=== PATIENT | female | born 1970 | race Caucasian/White ===

== ENCOUNTER → 2017-05-04 | Outpatient (CLI) | payer BC ==
--- NOTE | 2017-05-05 08:01 | US ---
EXAMINATION TYPE: US thyroid st tissue head/neck DATE OF EXAM: 05/04/2017 COMPARISON: 02/09/2013 CLINICAL HISTORY: E03.9 Hypothyroid. GLAND SIZE: Right Lobe: 4.9 x 1.4 x 1.9 cm Overall Parenchyma: grossly heterogenous Left Lobe: 4.8 x 1.4 x 1.5 cm Overall Parenchyma: grossly heterogenous Isthmus Thickness: 0.3 cm NODULES RIGHT: # of nodules measured on right: 0 LEFT: # of nodules measured on left: 0 1 ISTHMUS: # of nodules measured in the isthmus: 0 Bilateral neck scanned, no evidence of lymphadenopathy. IMPRESSION: Correlate for thyroiditis.
== END | disposition home or self-care (01) ==
LOC: RADUSWWP 16:50
PROVIDERS: ATTEND Pediatrics
DX: E03.9 Hypothyroidism, unspecified (principal)
CPT/HCPCS: 76536

== ENCOUNTER → 2018-04-06 | Outpatient (CLI) | payer BC ==
--- NOTE | 2018-04-09 08:23 | MM ---
Reason for exam: screening (asymptomatic). Last mammogram was performed 8 months ago. History: Patient is postmenopausal and had first child at age 30. Physical Findings: A clinical breast exam by your physician is recommended on an annual basis and results should be correlated with mammographic findings. MG 3D Screening Mammo W/Cad Bilateral CC and MLO view(s) were taken. Prior study comparison: August 14, 2017, left breast mammogram, performed at [facility]. The breast tissue is extremely dense which could obscure a lesion on mammography. Finding: There is a typically benign 3 mm circumscribed round mass located 3 cm from the nipple in the left breast. No significant changes in finding since August 14, 2017. ASSESSMENT: Benign, BI-RAD 2 RECOMMENDATION: Routine screening mammogram of both breasts in 1 year.
== END | disposition home or self-care (01) ==
LOC: RADMAMWWP 16:25
PROVIDERS: ATTEND Pediatrics
DX: Z12.31 Encounter for screening mammogram for malignant neoplasm of breast (principal)
CPT/HCPCS: 77063; 77067

== ENCOUNTER → 2019-04-19 | Outpatient (CLI) | payer BC ==
--- NOTE | 2019-04-22 10:47 | MM ---
Reason for exam: screening (asymptomatic). Last mammogram was performed 1 year ago. History: Patient is postmenopausal and had first child at age 30. Physical Findings: A clinical breast exam by your physician is recommended on an annual basis and results should be correlated with mammographic findings. MG Screening Mammo w CAD Bilateral CC and MLO view(s) were taken. Prior study comparison: April 06, 2018, bilateral MG 3d screening mammo w/cad. August 14, 2017, left breast mammogram, performed at [facility]. The breast tissue is heterogeneously dense. This may lower the sensitivity of mammography. No significant changes when compared with prior studies. ASSESSMENT: Negative, BI-RAD 1 RECOMMENDATION: Routine screening mammogram of both breasts in 1 year.
== END | disposition home or self-care (01) ==
LOC: RADMAMWWP 09:19
PROVIDERS: ATTEND Physician Assistant
DX: Z12.31 Encounter for screening mammogram for malignant neoplasm of breast (principal)
CPT/HCPCS: 77067

== ENCOUNTER → 2020-04-25 | Outpatient (CLI) | payer BC ==
--- NOTE | 2020-04-30 11:15 | MM ---
Reason for exam: screening (asymptomatic). Last mammogram was performed 1 year ago. History: Patient is postmenopausal and had first child at age 30. Took estrogen for 3 years beginning at age 37. Physical Findings: A clinical breast exam by your physician is recommended on an annual basis and results should be correlated with mammographic findings. MG Screening Mammo w CAD Bilateral CC and MLO view(s) were taken. Prior study comparison: April 19, 2019, bilateral MG screening mammo w CAD. April 06, 2018, bilateral MG 3d screening mammo w/cad. The breast tissue is heterogeneously dense. This may lower the sensitivity of mammography. No significant changes when compared with prior studies. ASSESSMENT: Negative, BI-RAD 1 RECOMMENDATION: Routine screening mammogram of both breasts in 1 year.
== END | disposition home or self-care (01) ==
LOC: RADMAMWWP 10:54
PROVIDERS: ATTEND Pediatrics
DX: Z12.31 Encounter for screening mammogram for malignant neoplasm of breast (principal)
CPT/HCPCS: 77067

== ENCOUNTER → 2022-05-05 | Outpatient (CLI) | payer BC ==
--- NOTE | 2022-05-06 18:47 | MM ---
Reason for Exam: Screening (asymptomatic). Last mammogram was performed 2 year(s) and 1 month(s) ago. Patient History: Menarche at age 10. First Full-Term at age 30. Late child-bearing (after 29). Hysterectomy at age 40. Postmenopausal. Estrogen for 3 years from age 37 until age 40. Risk Values: Gisele 5 year model risk: 1.6%. NCI Lifetime model risk: 12.8%. Prior Study Comparison: 04/06/2018 Bilateral Screening Mammogram, [facility]. 04/19/2019 Bilateral Screening Mammogram, [facility]. 04/25/2020 Bilateral Screening Mammogram, [facility]. Tissue Density: The breast tissue is heterogeneously dense. This may lower the sensitivity of mammography. Findings: Analyzed By CAD. Microclip lateral left breast from prior biopsy. There is no suspicious group of microcalcifications or new suspicious mass in either breast. Overall Assessment: Negative, BI-RAD 1 Management: Screening Mammogram of both breasts in 1 year. 1. Patient should continue monthly self breast exams. 2. A clinical breast exam by your physician is recommended on an annual basis. 3. This exam should not preclude additional follow-up of suspicious palpable abnormalities. Electronically signed and approved by: Koffi Murphy M.D. Radiologist
== END | disposition home or self-care (01) ==
LOC: RADMAMWWP 14:51
PROVIDERS: ATTEND Pediatrics
DX: Z12.31 Encounter for screening mammogram for malignant neoplasm of breast (principal); Z78.0 Asymptomatic menopausal state
CPT/HCPCS: 77067

== ENCOUNTER → 2022-08-15 | Outpatient (CLI) | payer BC, OTHER ==
--- NOTE | 2022-08-15 10:38 | XR ---
Exam: Lumbosacral spine 5 views Date: 08/15/2022 Comparison: None Clinical History: Bilateral lower extremity weakness Technique: Multiple views of the lumbosacral spine were obtained per protocol. Findings: There is no significant lateral curvature of the lumbar spine. There is no asymmetric widening of the sacroiliac joints. The visualized sacral arcuate lines are symmetric and contiguous. There are no ob vious pars defects per vertebral body height and alignment are within normal limits. There is mild lo wer lumbar facet arthropathy. Overall, disc spaces appear to be maintained. Impression: Mild lower lumbar facet arthropathy without compression deformity or spondylolisthesis.
--- NOTE | 2022-08-15 10:40 | XR ---
Exam: Thoracic spine 3 views Date: 08/15/2022 Comparison: None Clinical History: Bilateral lower extremity weakness. Technique: 3 views of the thoracic spine were obtained per protocol. Findings: There is no significant lateral curvature of the thoracic spine. The visualized lung apices are clear . Vertebral body heights and alignment appear to be within normal limits. There is minimal multilevel disc space narrowing. Impression: Minimal multilevel degenerative changes without compression deformity.
== END | disposition home or self-care (01) ==
LOC: RADXRMAIN 10:06
PROVIDERS: ATTEND Pediatrics
DX: M47.816 Spondylosis without myelopathy or radiculopathy, lumbar region (principal); M47.814 Spondylosis without myelopathy or radiculopathy, thoracic region
CPT/HCPCS: 72070; 72110

== ENCOUNTER → 2023-05-18 | Outpatient (CLI) | payer BC, OTHER ==
--- NOTE | 2023-05-19 16:03 | MM ---
Reason for Exam: Screening (asymptomatic). Last screening mammogram was performed 12 month(s) ago. Patient History: Menarche at age 10. First Full-Term at age 30. Late child-bearing (after 30). Hysterectomy at age 40. Postmenopausal. Estrogen for 3 years from age 37 until age 40. Risk Values: Gisele 5 year model risk: 1.7%. NCI Lifetime model risk: 12.6%. Prior Study Comparison: 04/19/2019 Bilateral Screening Mammogram, [facility]. 04/25/2020 Bilateral Screening Mammogram, [facility]. 05/05/2022 Bilateral MG screening mammo w CAD, [facility]. Tissue Density: The breast tissue is heterogeneously dense. This may lower the sensitivity of mammography. Findings: Analyzed By CAD. There is no suspicious group of microcalcifications or new suspicious mass in either breast. Overall Assessment: Negative, BI-RAD 1 Management: Screening Mammogram of both breasts in 1 year. . Patient should continue monthly self-breast exams. A clinical breast exam by your physician is recommended on an annual basis. This exam should not preclude additional follow-up of suspicious palpable abnormalities. Note on Gisele scores and lifetime risk: 1. A Gisele score greater than 3% is considered moderate risk. If this is the case, consider specialist referral to assess eligibility for a risk reducing agent. 2. If overall lifetime risk for the development of breast cancer is 20% or higher, the patient may qualify for future screening with alternating mammogram and breast MRI. Electronically signed and approved by: Koffi Murphy M.D. Radiologist
== END | disposition home or self-care (01) ==
LOC: RADMAMWWP 09:58
PROVIDERS: ATTEND Pediatrics
DX: Z12.31 Encounter for screening mammogram for malignant neoplasm of breast (principal); Z78.0 Asymptomatic menopausal state
CPT/HCPCS: 77067

== ENCOUNTER → 2023-08-19 | Outpatient (CLI) | payer BC, OTHER ==
--- NOTE | 2023-08-19 19:51 | MR ---
EXAMINATION TYPE: MR cspine/lspine wo con DATE OF EXAM: 08/19/2023 COMPARISON: None HISTORY: 53-year-old female R29.898 Jules weakness TECHNIQUE: Multiplanar, multisequence imaging of the cervical and lumbar spine is performed without I V contrast. Additional sagittal PD sequences of the cervical spine. FINDINGS: Cervical spine: No craniocervical junction abnormality, predental space widening, prevertebral soft tissue swelling. No suspicious bone marrow placement. There is preserved alignment of the cervical spine. Mild multilevel disc disease is present with desiccated mild bulging discs. No large focal disc herniation or significant spinal canal stenosis. Normal course, caliber, and signal intensity of the cervical spinal cord. Scattered mild facet and uncovertebral joint degenerative change especially mid to lower cervical spi ne. No significant neuroforaminal narrowing is identified. Lumbar spine: Mild heterogeneous red marrow. This may be seen in setting of anemia, obesity, smoking, chronic disea se. There is mild intervertebral disc desiccation throughout. Minimal bulging disc at L5-S1. Mild facet degenerative change mid to lower lumbar spine. Vertebral body heights are preserved and alignment is maintained. Conus medullaris is normal. There is a tiny 4 mm intradural nodule within the right median dorsal thecal sac along the cauda equi na nerve roots. Refer to sagittal image 9. Located at the L3-L4 level. At L5-S1, there is a tiny right paracentral disc protrusion. This closely approaches and may abut the traversing right S1 nerve root, axial image 3 and sagittal image 9 and 10. A tiny annular fissure ma y be present here as well, sagittal image 11. No sizable disc herniation or spinal canal stenosis. No significant neuroforaminal stenosis. No prevertebral or paravertebral soft tissue abnormality. COMBINED IMPRESSION: Cervical spine: 1. Mild multilevel degenerative disc disease. Additional scattered mild facet and uncovertebral joint degenerative changes especially mid to lower cervical spine. 2. No focal disc herniation or significant spinal canal stenosis. No significant neural foraminal velma nosis. 3. No myelopathic cord signal change. Lumbar spine: 4. Mild early degenerative disc desiccation and mild early facet arthropathy lower lumbar spine. 5. No sizable focal disc herniation or significant spinal canal stenosis. However, a small right para central disc protrusion at L5-S1 closely approaches and may abut the traversing right S1 nerve root. Suggestion of a tiny annular fissure in this region as well. 6. Incidental 4 mm intradural nodule at the L3-L4 level, right paramedian dorsal thecal sac. This cou ld represent a tiny meningioma or nerve sheath tumor. 7. No significant neural foraminal stenosis.
== END | disposition home or self-care (01) ==
LOC: RADMRIMAIN 10:19
PROVIDERS: ATTEND Psychiatry & Neurology Neurology
DX: M51.36 Other intervertebral disc degeneration, lumbar region (principal); M47.816 Spondylosis without myelopathy or radiculopathy, lumbar region; M51.27 Other intervertebral disc displacement, lumbosacral region; R29.898 Other symptoms and signs involving the musculoskeletal system
CPT/HCPCS: 72141; 72148

== ENCOUNTER → 2024-04-11 | Outpatient (CLI) | payer BC, OTHER ==
[2024-04-11 16:10] VITALS: BP 162/86; PULSE 74; RESP 16; TEMP 98.4
--- NOTE | 2024-04-11 17:00 | P.SLEEP ---
History of Present Illness DATE: 04/11/2024 CONSULTATION/NEW PATIENT EVALUATION HISTORY OF PRESENT ILLNESS/SLEEP-WAKE EVALUATION: 53-year-old lady had been evaluated in the sleep center for possible obstructive sleep apnea hypopnea syndrome. SLEEP SCHEDULE: Usually sleep schedule from 10:30 PM to 6 AM. FALLING ASLEEP: No problems with falling asleep. DURING SLEEP: Patient snores and stop breathing during the sleep. Patient wakes up from sleep average 3 times with up to 4 episodes of nocturia. Significant amount of movements during the night, restless leg symptoms. Positive history of grinding teeth, gasping for air, sleep talking sweating no history of hypnogogical hallucinations, sleep paralysis, or cataplexy. DURING THE DAY/WAKE STATE: During the day patient has problems with memory, concentration, depression and anxiety. [place] sleepiness scale is 7. Patient may take 1 nap at afternoon time. PAST MEDICAL HISTORY: Hypertension, hypothyroidism, hyperlipidemia, headaches. PAST SURGICAL HISTORY: Partial hysterectomy. MEDICATIONS: Have been reviewed, please see below. SOCIAL HISTORY: Please see below. FAMILY HISTORY: Please see below. REVIEW OF SYSTEMS: Snoring, multiple awakenings from sleep, episodes of sleepiness during the day, restless leg symptoms. No fevers. No double vision. No recent chest pain. No shortness of breath. No abdominal pain. No bleeding episodes. No blood in urine. No seizure episodes. PHYSICAL EXAMINATION: GENERAL: A pleasant patient without any distress. VITAL SIGNS: See below, weight 159 pounds, BMI 29.8. HEENT: PERRLA, EOMI. Evaluation of oropharynx showed tongue protrudes midline, low position of soft palate Mallampati 23, short distance between soft palate and posterior pharyngeal wall. NECK: Supple. No JVD. Thyroid is not palpable. 13 inches in circumference. LUNGS: Clear to percussion and to auscultation. Good air exchange. No wheezing or rhonchi. HEART: S1, S2 regular. No murmurs, gallops or rubs. ABDOMEN: Soft and nontender. Bowel sounds are present. No organomegaly appreciated. EXTREMITIES: No clubbing or cyanosis. [employer]: Awake, alert, and oriented x3. Cranial nerves 2 to 7 intact. There is no fasciculation or atrophy noted. No focal deficits observed. ASSESSMENT: 1. Snoring, episodes of stop breathing during the sleep, multiple awakenings from sleep, short distance between soft palate and posterior pharyngeal wall. Obstructive sleep apnea hypopnea syndrome. 2. Overweight, BMI 29.8. 3. Restless leg symptoms. 4. Possible periodic limb movements. 5 hypertension. 6 . Hypothyroidism. 7. Hyperlipidemia. 8. Episodes of headaches. 9 . Status post partial hysterectomy. 1 PLAN: 1. Polysomnography for evaluation of patient's breathing during sleep. 2. Following plan after reading sleep study 3. Preferable position during sleep on the side. 4. No driving if patient feels any sleepiness. Patient is aware of civil and criminal liability for unsafe driving. 5. Sleep hygiene with regular sleep time for at least 7.5-8 hours. 6. Watching weight. Thank you very much for referring this patient for consultation. Sincerely, Jacob Tijerina MD, PhD, FAASM. Diplomat of [place] [employer], Sleep Medicine Board by [place] [employer] [place] [employer] [place] cc: Yoav Jarrell MD, Anupama Wright PA-C Past Medical History Past Medical History: No Reported History, Hyperlipidemia Additional Past Medical History / Comment(s): headaches, Restless legs History of Any Multi-Drug Resistant Organisms: None Reported Past Surgical History: Hysterectomy, Orthopedic Surgery Past Anesthesia/Blood Transfusion Reactions: Previous Problems w/ Anesthesia Additional Past Anesthesia/Blood Transfusion Reaction / Comment(s): effects last long after Past Psychological History: No Psychological Hx Reported Smoking Status: Never smoker Past Drug Use History: None Reported - Past Family History Mother Family Medical History: Hypertension Additional Family Medical History / Comment(s): restless legs Sister(s) Additional Family Medical History / Comment(s): restless legs Physical Exam Vitals: Vital Signs Temp Pulse Resp BP Pulse Ox 04/11/24 16:09 98.4 F 74 16 162/86 100 Sleep Note - Sleep Data ESS Total: 7 - Sleep Note Sleep Note: Temperature: 98.4 F Pulse Rate: 74 Respiratory Rate: 16 Blood Pressure: 162/86 SpO2: 100 Height: Weight: BMI: Neck Circumference: 13
== END ==
LOC: 3 N SLEEP 14:53
PROVIDERS: ATTEND Internal Medicine
DX: G47.33 Obstructive sleep apnea (adult) (pediatric) (principal); E66.3 Overweight; Z68.29 Body mass index [BMI] 29.0-29.9, adult; G25.81 Restless legs syndrome; G47.61 Periodic limb movement disorder; I10 Essential (primary) hypertension; E03.9 Hypothyroidism, unspecified; E78.5 Hyperlipidemia, unspecified; R51.9 Headache, unspecified; Z90.711 Acquired absence of uterus with remaining cervical stump
CPT/HCPCS: 99211

== ENCOUNTER → 2024-05-31 | Outpatient (CLI) | payer BC, OTHER ==
--- NOTE | 2024-05-31 10:47 | MM ---
Reason for Exam: Screening (asymptomatic). Last mammogram was performed 1 year(s) and 1 month(s) ago. Patient History: Menarche at age 10. First Full-Term at age 30. Late child-bearing (after 30). Hysterectomy at age 40. Postmenopausal. Estrogen for 3 years from age 37 until age 40. Risk Values: Gisele 5 year model risk: 1.7%. NCI Lifetime model risk: 12.4%. Prior Study Comparison: 04/25/2020 Bilateral Screening Mammogram, [facility]. 05/05/2022 Bilateral MG screening mammo w CAD, [facility]. 05/18/2023 Bilateral MG screening mammo w CAD, [facility]. Tissue Density: The breasts are heterogeneously dense, which may obscure small masses. Findings: Analyzed By CAD. There is no suspicious group of microcalcifications or new suspicious mass in either breast. Overall Assessment: Negative, BI-RAD 1 Management: Screening Mammogram of both breasts in 1 year. . Patient should continue monthly self-breast exams. A clinical breast exam by your physician is recommended on an annual basis. This exam should not preclude additional follow-up of suspicious palpable abnormalities. Note on Gisele scores and lifetime risk: 1. A Gisele score greater than 3% is considered moderate risk. If this is the case, consider specialist referral to assess eligibility for a risk reducing agent. 2. If overall lifetime risk for the development of breast cancer is 20% or higher, the patient may qualify for future screening with alternating mammogram and breast MRI. [facility], , 05/31/2024 10:45 AM. Electronically signed and approved by: Juliano Adams M.D.
== END | disposition home or self-care (01) ==
LOC: RADMAMWWP 10:07
PROVIDERS: ATTEND Pediatrics
DX: Z12.31 Encounter for screening mammogram for malignant neoplasm of breast (principal); R92.333 Mammographic heterogeneous density, bilateral breasts; Z78.0 Asymptomatic menopausal state
CPT/HCPCS: 77067